=== PATIENT | female | born 1980 | race Caucasian/White ===

== ENCOUNTER 2018-03-13 00:16 | Emergency (ER) | payer OTHER ==
[2018-03-13 01:09] LABS: PLATELET COUNT 288 10^3/uL (150-400)
[2018-03-13] MEDS ORDERED: NS 1,000 ML IV ONE (01:15)
--- NOTE | 2018-03-13 01:15 | EDPHY ---
H & P Stated Complaint: Awoke from sleep SOB and heart palpations, recent travel Time Seen by Provider: 03/13/18 01:15 HPI/ROS: HPI CHIEF COMPLAINT: Shortness of breath, palpitations, possible anxiety HISTORY OF PRESENT ILLNESS: 37-year-old female presents emergency room by private vehicle for sudden-onset racing heart that woke her from sleep, additionally feeling anxious and short of breath. Patient states the 2nd time it has happened to her. She resides in [place] she flew to [place] and staying at a local hotel for work. She was sleeping and woke her up from sleep suddenly with sudden-onset palpitations. No chest pain. No pleuritic pain. Did indoor shortness of breath. She arrives emergency room hemodynamically stable no acute distress. She states she is tired but feeling better. She reports to me 2 weeks ago this same thing happened while staying in a hotel in [place]. Past Medical History: GERD Past Surgical History: Denies surgical history Social History: Denies drugs alcohol tobacco. Resides in [place]. Here for work. Family History: Noncontributory ROS REVIEW OF SYSTEMS: 10 Systems were reviewed and negative with the exception of the elements mentioned in the history of present illness. Exam Constitutional nontoxic appearing, slightly anxious, triage nursing summary reviewed, vital signs reviewed, awake/alert. Eyes normal conjunctivae and sclera, EOMI, PERRLA. HENT normal inspection, atraumatic, moist mucus membranes, no epistaxis, neck supple/ no meningismus, no raccoon eyes. Respiratory clear to auscultation bilaterally, normal breath sounds, no respiratory distress, no wheezing. Cardiovascular rate normal, regular rhythm, no murmur, no edema, distal pulses normal. Gastrointestinal soft, non-tender, no rebound, no guarding, normal bowel sounds, no distension, no pulsatile mass. Genitourinary no CVA tenderness. Musculoskeletal no midline vertebral tenderness, full range of motion, no calf swelling, no tenderness of extremities, no meningismus, good pulses, neurovascularly intact. Skin pink, warm, & dry, no rash, skin atraumatic. Neurologic awake, alert and oriented x 3, AAOx3, moves all 4 extremities equally, motor intact, sensory intact, CN II-XII intact, normal cerebellar, normal vision, normal speech. Psychiatric anxious. Heme/Lymph/Immune no lymphadenopathy. Differential diagnosis includes but is not limited to: ACS, atypical chest pain , pneumothorax, pneumonia, pulmonary embolism, aortic dissection, congestive heart failure, tumor, musculoskeletal pain, esophageal pain, GERD, peptic ulcer disease, pancreatitis Medical Decision Making: IV establishment, IV fluid bolus 1 L, IV Ativan, EKG, troponin, D-dimer, chest x-ray, re-evaluate. Re-evaluation: EKG interpretation by me on record in [employer] system. Impression time of EKG 0037, sinus rhythm rate of 79 AK interval 238 first-degree AV block. Otherwise no acute ischemia no ST elevation no ST depression no significant T- wave abnormalities. 0225: The re-examination at this time. Patient is resting comfortably no acute distress denies any chest pain or shortness of breath. The patient's EKG is nonischemic. Troponin 0.00. D-dimer is noted to be negative. Chest x-ray one view negative for acute cardiopulmonary disease. Source: Patient - Personal History LMP (Females 10-55): Now Current Tetanus Diphtheria and Acellular Pertussis (TDAP): Yes - Medical/Surgical History Hx Asthma: No Hx Chronic Respiratory Disease: No Hx Diabetes: No Hx Cardiac Disease: No Hx Renal Disease: No Hx Cirrhosis: No Hx Alcoholism: No Hx HIV/AIDS: No Hx Splenectomy or Spleen Trauma: No Other PMH: GERD, ANXIETY - Social History Smoking Status: Never smoked Constitutional: Initial Vital Signs Temperature (C) 36.6 C 03/13/18 00:21 Heart Rate 91 03/13/18 00:21 Respiratory Rate 19 03/13/18 00:21 Blood Pressure 116/78 03/13/18 00:21 O2 Sat (%) 98 03/13/18 00:21 O2 Delivery Mode Room Air Allergies/Adverse Reactions: No Known Allergies Allergy (Unverified 03/13/18 00:20) Medical Decision Making - Data Points Laboratory Results: Laboratory Results 03/13/18 00:56 03/13/18 01:15 03/13/18 03/13/18 03/13/18 01:15 01:03 00:56 WBC RBC Hgb Hct MCV MCH MCHC RDW Plt Count MPV Neut % (Auto) Lymph % (Auto) [place] % (Auto) Eos % (Auto) Baso % (Auto) Nucleat RBC Rel Count Absolute Neuts (auto) Absolute Lymphs (auto) Absolute Monos (auto) Absolute Eos (auto) Absolute Basos (auto) Absolute Nucleated RBC Immature Gran % Immature Gran # D-Dimer Turbidity Cancelled Sodium Cancelled Potassium Cancelled Chloride Cancelled Carbon Dioxide Cancelled Anion Gap Cancelled BUN Cancelled Creatinine Cancelled Estimated GFR Cancelled Glucose Cancelled Calcium Cancelled Magnesium 1.8 mg/dL mg/dL (1.6-2.3) Total Bilirubin 0.1 mg/dL mg/dL (0.1-1.4) Conjugated Bilirubin 0.0 mg/dL mg/dL (0.0-0.5) Unconjugated Bilirubin 0.1 mg/dL mg/dL (0.0-1.1) Icterus Index Cancelled AST Cancelled ALT Cancelled Alkaline Phosphatase Cancelled POC Troponin I 0.00 ng/mL ng/mL (0.00-0.08) NT-Pro-B Natriuret Pep 47 pg/mL pg/mL (0-125) Total Protein Cancelled Albumin Cancelled Lipase 211 IU/L IU/L (23-300) Beta HCG, Qual NEGATIVE 03/13/18 03/13/18 03/13/18 00:56 00:56 00:56 WBC 4.71 10^3/uL 10^3/uL (3.80-9.50) RBC 3.66 10^6/uL L 10^6/uL (4.18-5.33) Hgb 10.5 g/dL L g/dL (12.6-16.3) Hct 31.6 % L % (38.0-47.0) MCV 86.3 fL fL (81.5-99.8) MCH 28.7 pg pg (27.9-34.1) MCHC 33.2 g/dL g/dL (32.4-36.7) RDW 14.0 % % (11.5-15.2) Plt Count 288 10^3/uL 10^3/uL (150-400) MPV 10.6 fL fL (8.7-11.7) Neut % (Auto) 50.4 % % (39.3-74.2) Lymph % (Auto) 39.7 % % (15.0-45.0) [place] % (Auto) 7.6 % % (4.5-13.0) Eos % (Auto) 1.9 % % (0.6-7.6) Baso % (Auto) 0.2 % L % (0.3-1.7) Nucleat RBC Rel Count 0.0 % % (0.0-0.2) Absolute Neuts (auto) 2.37 10^3/uL 10^3/uL (1.70-6.50) Absolute Lymphs (auto) 1.87 10^3/uL 10^3/uL (1.00-3.00) Absolute Monos (auto) 0.36 10^3/uL 10^3/uL (0.30-0.80) Absolute Eos (auto) 0.09 10^3/uL 10^3/uL (0.03-0.40) Absolute Basos (auto) 0.01 10^3/uL L 10^3/uL (0.02-0.10) Absolute Nucleated RBC 0.00 10^3/uL 10^3/uL (0-0.01) Immature Gran % 0.2 % % (0.0-1.1) Immature Gran # 0.01 10^3/uL 10^3/uL (0.00-0.10) D-Dimer < 0.27 ug/mLFEU ug/mLFEU (0.00-0.50) Turbidity Sodium 140 mEq/L mEq/L (135-145) Potassium 3.6 mEq/L mEq/L (3.3-5.0) Chloride 106 mEq/L mEq/L (97-110) Carbon Dioxide 26 mEq/l mEq/l (22-31) Anion Gap 8 mEq/L mEq/L (8-16) BUN 17 mg/dL mg/dL (7-23) Creatinine 0.6 mg/dL mg/dL (0.6-1.0) Estimated GFR > 60 Glucose 103 mg/dL H mg/dL (70-100) Calcium 8.9 mg/dL mg/dL (8.5-10.4) Magnesium Total Bilirubin 0.1 mg/dL mg/dL (0.1-1.4) Conjugated Bilirubin Unconjugated Bilirubin Icterus Index AST 23 IU/L IU/L (14-46) ALT 19 IU/L IU/L (9-52) Alkaline Phosphatase 41 IU/L IU/L (38-126) POC Troponin I NT-Pro-B Natriuret Pep Total Protein 6.6 g/dL g/dL (6.3-8.2) Albumin 3.8 g/dL g/dL (3.5-5.0) Lipase Beta HCG, Qual Medications Given: Discontinued Medications Sodium Chloride (Ns) 1,000 mls @ 0 mls/hr IV EDNOW ONE; Wide Open PRN Reason: Protocol Stop: 03/13/18 01:16 Last Admin: 03/13/18 01:24 Dose: 1,000 mls Lorazepam (Ativan Injection) 1 mg IVP EDNOW ONE Stop: 03/13/18 01:20 Last Admin: 03/13/18 01:24 Dose: 1 mg Point of Care Test Results: Chemistry 03/13/18 01:03 POC Troponin I 0.00 ng/mL ng/mL (0.00-0.08) Departure - Departure Disposition: Home, Routine, Self-Care Clinical Impression: Palpitations, Anxiety Condition: Good Instructions: Heart Palpitations (ED), Anxiety (ED) Additional Instructions: 1. Return emergency room if you have worsening symptoms. 2. Return if he develops chest pain, shortness of breath, fast heart rate. 3. 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 Referrals: NONE *PRIMARY CARE P,. [Primary Care Provider] - As per Instructions
[2018-03-13] MEDS ORDERED: LORazepam 2 MG/ML INJ IVP ONE (01:19)
[2018-03-13 02:34] VITALS: BP 125/80
--- NOTE | 2018-03-13 23:09 | CPEKG ---
Test Reason : OPEN Blood Pressure : / mmHG Vent. Rate : 079 BPM Atrial Rate : 079 BPM P-R Int : 238 ms QRS Dur : 082 ms QT Int : 376 ms P-R-T Axes : 000 051 051 degrees QTc Int : 432 ms Sinus rhythm Prolonged IN interval Confirmed by Dl Inman ([id number]) on 03/13/2018 11:08:13 PM Referred By: Confirmed By:Dl Inman
== END 2018-03-13 02:37 | disposition home or self-care (01) ==
DX: R00.2 Palpitations (principal); F41.9 Anxiety disorder, unspecified; E86.9 Volume depletion, unspecified
CPT/HCPCS: 84484-PO; 96374; J2060